=== PATIENT | female | born 1995 | race African-American/Black ===

== ENCOUNTER 2023-07-22 19:54 | Emergency (ER) | payer MEDICAID ==
[~2023-07-22] VITALS: Ht 170.2 cm; Wt 82.0 kg
[2023-07-22 20:00] VITALS: TEMP 98.4; O2SAT 99
[2023-07-22 20:45] VITALS: BP 150/88; PULSE 88; RESP 18
[2023-07-22] MEDS: KETOROLAC 30MG/ML VIAL IV ONE (20:45)
[2023-07-22] MEDS ORDERED: P20 MT (20:58)
[2023-07-22] MEDS ORDERED: IBUP-2028 MT (20:58)
[2023-07-22] MEDS ORDERED: LIDO1ADH7 TP (20:58)
[2023-07-22] MEDS ORDERED: CYCL10TA21 MT (20:58)
== END 2023-07-23 00:06 | disposition home or self-care (01) ==
LOC: ER 20:09
DX: M54.50 Low back pain, unspecified (principal); D64.9 Anemia, unspecified; Z79.899 Other long term (current) drug therapy
CPT/HCPCS: 99283; 96374; J1885